=== PATIENT | female | born 1985 | race Caucasian/White ===

== ENCOUNTER → 2021-04-14 | Outpatient (CLI) | payer OTHER ==
--- NOTE | 2021-04-14 17:41 | KCIC ---
EXAM: XR KNEE 3 VIEWS_RT 04/14/2021 9:39 AM CLINICAL INDICATION: Lateral right knee pain after walking 5K. [place] a pop. COMPARISON: None TECHNIQUE: 3 views of the right knee FINDINGS: No acute fracture. Alignment is normal. Joint spaces are maintained. No joint effusion. IMPRESSION: No acute osseous abnormality. Electronically signed by: Aneta Collier MD (04/14/2021 5:38 PM) [id number]
== END ==
LOC: KCIC 09:36
PROVIDERS: ATTEND Physician Assistant
DX: M25.561 Pain in right knee (principal)
CPT/HCPCS: 73562

== ENCOUNTER → 2021-06-10 | Outpatient (CLI) | payer OTHER ==
--- NOTE | 2021-06-10 14:44 | KCIC ---
Exam Date: 06/10/2021 1:25 PM MRI RIGHT LOWER EXTREMITY JOINT WITHOUT Indication: Reason: RIGHT KNEE PAIN / Spl. Instructions: / History: Progressing instability and hype rflexing of knee. Crepitus. Pain.. TECHNIQUE: Routine multiplanar MR imaging of the knee was performed without contrast. COMPARISON: Radiographs from April 14, 2021 FINDINGS: The medial and lateral menisci are intact and within normal limits for age. The anterior cruciate ligament, posterior cruciate ligament, medial collateral ligament, and lateral collateral ligament complex are intact. Patellofemoral extensor mechanism and popliteus tendon are w ithin normal limits. Tricompartment multifocal partial thickness chondral defects are seen, including a 6 x 8 mm near full -thickness chondral defect along the posterior weightbearing lateral femoral condyle. No full thickn ess chondral defects are identified. Bone marrow demonstrates benign signal on all sequences. No ac [place] fracture is seen. Physiologic joint fluid is present. There is no popliteal cyst. 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 Intact menisci and ligaments. No acute fracture. Electronically signed by: Joesph Mulligan MD (06/10/2021 2:41 PM) [facility]
== END ==
LOC: KCIC MRI 13:08
PROVIDERS: ATTEND Physician Assistant
DX: M17.11 Unilateral primary osteoarthritis, right knee (principal); M25.861 Other specified joint disorders, right knee; M25.561 Pain in right knee; M25.361 Other instability, right knee
CPT/HCPCS: 73721